=== PATIENT | male | born 1990 | race African-American/Black ===

== ENCOUNTER 2017-06-27 20:14 | Emergency (ER) | payer SELFPAY ==
[~2017-06-27] VITALS: Ht 177.8 cm; Wt 75.0 kg
[2017-06-27 20:53] VITALS: BP 116/72
[2017-06-28] MEDS ORDERED: ACETAMINOPHEN 325MG TABLET PO ONE
== END 2017-06-28 00:11 | disposition home or self-care (01) ==
LOC: ER 22:17
DX: S50.852A Superficial foreign body of left forearm, initial encounter (principal); R51 Headache; F32.9 Major depressive disorder, single episode, unspecified; J45.909 Unspecified asthma, uncomplicated; F17.200 Nicotine dependence, unspecified, uncomplicated; F12.10 Cannabis abuse, uncomplicated; X58.XXXA Exposure to other specified factors, initial encounter; Y93.89 Activity, other specified; Y92.89 Other specified places as the place of occurrence of the external cause; Y99.8 Other external cause status
CPT/HCPCS: 99283; 99284